=== PATIENT | female | born 1955 | race Caucasian/White ===

== ENCOUNTER 2016-10-17 10:51 | Emergency (ER) | payer BC ==
[~2016-10-17] VITALS: Ht 160 cm; Wt 55.8 kg
--- NOTE | ~2016-10-17 | CR21 ---
[facility] A Service of [facility] RADIOLOGY TEXT RESULTS PATIENT: RENA CARRION LOCATION: [facility] : 53 UNIT #: [id number] AGE: [address]: Inocencia Brody APRN SEX: F ORDER DR: [id number] [facility] [address] [place], [place] [address] [id number] MR#: [id number] Acc #: [id number] NAME: RENA CARRION : 1955 SEX: F STUDY DATE/TIME: 10/17/2016 11:54 UNIT: [facility] ROOM: STUDY DESCRIPTION: CR Ankle Min 3 Views Rt Attending Physician: Inocencia Brody A.P.R.N. Ordering Physician: Ed Doctor [id number] [facility] Primary Care Physician: Primary Care Physician No MEDICAL IMAGING REPORT This report is preliminary unless electronic signature is present EXAM Right ankle 3 views 10/17/2016 1154 hours HISTORY Patient missed a step and fell down stairs today. Pain and swelling of right ankle. COMPARISON None. FINDINGS AP, lateral and oblique views demonstrate significant lateral soft tissue swelling. There is an oblique incomplete fracture of the distal fibula beginning above the level of the tibiotalar articulation with inferior extent difficult to determine. The ankle mortise appears symmetric. No medial malleolar fracture is seen. Hindfoot is intact. IMPRESSION Lateral soft tissue swelling with an oblique fracture seen through the lateral cortex of the distal fibula at the level of the tibiotalar articulation. The distal extent of the fracture is not visualized and this could be an incomplete fracture. The ankle mortise appears symmetric. Dictated by... Jerrica Michel M.D. THIS IS AN ELECTRONICALLY VERIFIED REPORT Jerrica Michel M.D. at 10/17/2016 2:31 PM MARI/eva TD: 10/17/2016 13:46 [facility] A Service [facility] RADIOLOGY TEXT RESULTS PATIENT: RENA CARRION LOCATION: [facility] : 53 UNIT #: [id number] AGE: [address]: Inocencia Brody APRN SEX: F ORDER DR: ANGEL #: [id number] MEDICAL IMAGING REPORT Page 1 of 1 COPY
== END 2016-10-17 12:57 | disposition home or self-care (01) ==
LOC: CFTX 10:51 → CED 10:51 → CFTX 12:54
DX: S82.431A Displaced oblique fracture of shaft of right fibula, initial encounter for closed fracture (principal); R03.0 Elevated blood-pressure reading, without diagnosis of hypertension; Z88.8 Allergy status to other drugs, medicaments and biological substances; W19.XXXA Unspecified fall, initial encounter; Y92.009 Unspecified place in unspecified non-institutional (private) residence as the place of occurrence of the external cause
CPT/HCPCS: 29515; 73610; 99283